=== PATIENT | female | born 1975 | race Caucasian/White ===

== ENCOUNTER 2016-11-14 10:18 | Day surgery (SDC) | payer BC, MEDICAID ==
[~2016-11-14] VITALS: Ht 157.5 cm; Wt 65.4 kg
[2016-11-14 10:47] VITALS: Ht 157.5 cm; Wt 65.4 kg
[2016-11-14 11:16] VITALS: BP 100/52; PULSE 63; RESP 11
[2016-11-14 12:36] VITALS: BP 104/67; PULSE 68; RESP 12
[2016-11-14] MEDS ORDERED: FENTAnyl 50 MCG/ML VIAL ONE (13:13)
[2016-11-14] MEDS ORDERED: MIDAZOLAM 1 MG/ML 2 ML INJ ONE ×2 (13:13)
--- NOTE | 2016-11-14 13:41 | GILP ---
DATE OF PROCEDURE: NAME OF PROCEDURE: Colonoscopy. SURGEON: Kaye Martinez MD PREOPERATIVE DIAGNOSES: 1. Change in bowel habit. 2. Rectal bleeding. POSTOPERATIVE DIAGNOSES 1. Colonoscopy all the way to the cecum. 2. Large external hemorrhoids. INDICATION FOR THE PROCEDURE: Ms. Myriam Dobbins is a 41-year-old female patient who noticed a pandya e in the bowel habit associated with rectal bleeding. The patient was scheduled for colonoscopy for further evaluation. The procedure and possible complications are well explained to the patient. The patient understood and consented to the procedure. DESCRIPTION OF PROCEDURE: Under the influence of fentanyl and Versed, the colonoscope was carefully introduced in the rectum and under direct vision, it was advanced all the way to the cecum. FINDINGS: The patient had large external hemorrhoids. No colitis or neoplasm was identified. She tolerated the procedure very well and there was no complication from the procedure. At the end of the procedures, she was awake with stable vital signs and she was discharged home to the care of her family. IMPRESSION: 1. Colonoscopy all the way to the cecum. 2. Large external hemorrhoids. 3. No colitis or neoplasm was identified. PLAN: 1. MiraLax 17 grams dissolved in a glass of water p.o. daily. 2. Anusol-HC 2.5% cream b.i.d. 3. If the patient continues to bleed, the patient will need hemorrhoidectomy. Dictated By: KAYE GARCIA/DEONTE Conf#: [id number] DID#: [id number]
--- NOTE | 2016-11-15 09:41 | CONS ---
DATE OF ADMISSION: 11/14/2016 DATE OF CONSULTATION: TYPE OF CONSULTATION: Preoperative gastroenterology Dear Dr. Montalvo: I thank you very much for this kind referral. HISTORY OF PRESENT ILLNESS: Ms. Myriam Dobbins is a 41-year-old female patient who has been referred to me for further evaluation of change in the bowel habit associated with constipation. The patien t also complains of rectal bleeding. There is no past history of inflammatory bowel disease or colo n neoplasm. Her appetite has been good and she is not losing any weight. There is no history of pe ptic ulcer disease. She is not taking any nonsteroidal anti-inflammatory agents. There is no histo ry of gallstones. She does not have any fever, chills, or jaundice. There is no history of liver d isease. She is not a hypertensive or diabetic. She does not have any heart disease or lung problem . There is no history of kidney disease. SOCIAL HISTORY: She is a nonsmoker. She does not abuse alcohol. FAMILY HISTORY: Negative for gastrointestinal tract neoplasm. ALLERGIES: THERE IS NO HISTORY OF SIGNIFICANT DRUG ALLERGY. MEDICATIONS: None. PHYSICAL EXAMINATION: VITAL SIGNS: She is 5 feet 3 inches tall and she weighs 119 pounds. HEART: Examination of the heart reveals normal first and second heart sounds. LUNGS: Clear. ABDOMEN: Soft without any distention. Liver and spleen are not palpable. There are no masses. Th ere is no focal tenderness. Normal bowel sounds are heard. CENTRAL NERVOUS SYSTEM: Does not reveal any focal neurological deficit. RECTAL: Examination deferred per the patient's request. It will be done at the time of colonoscopy . IMPRESSION: 1. Change in the bowel habit with constipation. 2. Rectal bleeding. PLAN: Colonoscopy for further evaluation. The procedure and possible complications are well explained to the patient. She understands and con sents to the procedures. I thank you once again. With warmest personal regards, Dictated By: KAYE SAENZ MD GD/DEONTE Conf#: [id number] DID#: [id number] CC: KAYE SAENZ MD;*EndCC*
== END 2016-11-14 14:49 | disposition home or self-care (01) ==
LOC: GIL 10:18
PROVIDERS: ATTEND Internal Medicine Gastroenterology
DX: R19.4 Change in bowel habit (principal); K64.4 Residual hemorrhoidal skin tags
CPT/HCPCS: 45380; 84702; J2250; J3010; Z7610